=== PATIENT | female | born 1950 | race Caucasian/White ===

== ENCOUNTER 2020-09-16 22:08 | Emergency (ER) | payer MEDICARE ==
[~2020-09-16 22:08] MED LIST: LEVO-T150 MCG PO; VENTOLIN HFA IN18 GM INH
[2020-09-16] MEDS ORDERED: KEFLEX500 MG PO (23:59)
== END 2020-09-17 00:17 | disposition home or self-care (01) ==
LOC: FER 22:08
DX: S51.811A Laceration without foreign body of right forearm, initial encounter (principal); J45.909 Unspecified asthma, uncomplicated; E03.9 Hypothyroidism, unspecified; Z79.899 Other long term (current) drug therapy; Z23 Encounter for immunization; W26.0XXA Contact with knife, initial encounter
CPT/HCPCS: 90471; 90714; 90715

== ENCOUNTER 2022-03-06 08:38 | Emergency (ER) | payer MEDICARE ==
[~2022-03-06 08:38] MED LIST changes: +KEFLEX500 MG PO
[2022-03-06] MEDS ORDERED: DOXYCYCLINE HY100 M2 PO (09:29)
== END 2022-03-06 09:33 | disposition left against medical advice (07) ==
LOC: FER 08:38
DX: J98.01 Acute bronchospasm (principal); J45.909 Unspecified asthma, uncomplicated; Z88.5 Allergy status to narcotic agent; Z53.29 Procedure and treatment not carried out because of patient's decision for other reasons; Z28.311 Partially vaccinated for COVID-19
CPT/HCPCS: 99283